=== PATIENT | male | born 1950 | race Hispanic/Latino ===

== ENCOUNTER 2024-12-27 09:48 | Observation (INO) | payer OTHER ==
[~2024-12-27] VITALS: Ht 172.7 cm; Wt 57.5 kg
--- NOTE | 2024-12-27 10:15 | ERN ---
ED Note History of Present Illness Stated Complaint: PRIAPISM Chief Complaint: Other Problems Time Seen by MD: 10:01 Dictation: 74-YEAR-OLD MALE COMING IN WITH COMPLAINTS OF A PROLONGED ERECTION THAT ONSET WAS 0 400 THIS MORNING. HE TOOK VIAGRA AT 10:00 LAST NIGHT. HE STATES NORMALLY HE TAKES 50 MG OF VIAGRA, LAST NIGHT HE TOOK 100 MG OF VIAGRA States past medical history is hyperlipidemia and hypertension, he takes losartan daily. He is also on testosterone replacement and recently started Flomax from his primary care doctor. Allergies: Coded Allergies: No Known Drug Allergies (Unverified Allergy, Unknown, 12/27/24) Past Medical History Past Medical History: No Pertinent History Surgical History: None RN Note Reviewed/Agreed w/PFSH: Yes Review of System Dictation CONSTITUTIONAL: NEGATIVE EXCEPT FOR HPI HEAD/FACE: NEGATIVE EXCEPT FOR HPI EENT: NEGATIVE EXCEPT FOR HPI RESPIRATORY: NEGATIVE EXCEPT FOR HPI GASTROINTESTINAL/ABDOMINAL: NEGATIVE EXCEPT FOR HPI GENITOURINARY: NEGATIVE EXCEPT FOR HPI PRIAPISM, ONSET 0 400 THIS MORNING MUSCULOSKELETAL: NEGATIVE EXCEPT FOR HPI INTEGUMENTARY: NEGATIVE EXCEPT FOR HPI NEUROLOGICAL/PSYCH: NEGATIVE EXCEPT FOR HPI HEMATOLOGIC/LYMPHATIC: NEGATIVE EXCEPT FOR HPI ALL SYSTEMS NEGATIVE, EXCEPT NOTED ABOVE. 13 POINT REVIEW OF SYSTEMS ASSESSED AND ALL NEGATIVE EXCEPT FOR ABOVE. Initial Vital Sign VS Vital Signs Date Time Temp Pulse Resp B/P (MAP) Pulse Ox O2 Delivery O2 Flow Rate FiO2 12/27/24 09:50 98.2 84 16 124/61 98 Room Air 12/27/24 10:35 0 21 Physical Exam Dictation VITAL SIGNS REVIEWED GENERAL APPEARANCE: ALERT, ORIENTED X 3, MODERATE ACUTE DISTRESS, WELL DEVELOPED, NOURISHED. HEAD AND FACE: NON-TRAUMATIC. EYES: PERRL, PINK CONJUNCTIVAS, EYELID NO TRAUMA, ANTERIOR CHAMBER WITH ARCUS SENILIS. EARS: PINNAS INTACT AND NO SIGNS OF TRAUMA OR ERYTHEMA EAR CANALS CLEAR AND NO DISCHARGE TM NO ERYTHEMA NOSE: NO DISCHARGE, NO BLEEDING. OROPHARYNX: MOUTH NORMAL, TONGUE PINK, PHARYNX CLEAR,NO ERYTHEMA, TONSILS NO EXUDATES, NO ABSCESSES NOTED, MUCOUS MEMBRANE MOIST NECK: SUPPLE, NON-TENDER, NO THYROMEGALY, NO MASSES, NO JVD, NO BRUITS BREAST:DEFERRED CHEST:NO TENDERNESS, NO CREPITUS, NO PARADOXICAL MOVEMENT, NO RETRACTIONS LUNGS:CLEAR, WELL-VENTILATED, SYMMETRIC, NO RALES, NO WHEEZING, NO RHONCHI, NO STRIDOR, GOOD BREATH SOUNDS BILATERALLY HEART: REGULAR RATE, REGULAR RHYTHM, NO MURMUR, NO GALLOPS VASCULAR: NO PERIPHERAL EDEMA, ABDOMEN: SOFT, POSITIVE BOWEL SOUNDS, NONDISTENDED, NO GUARDING, NONTENDER, NO REBOUND, NO MASSES NO HEPATOMEGALY, NO SPLENOMEGALY, NO DALY'S SIGN, NO HERNIAS. RECTAL: DEFERRED GENITAL: PRIAPISM NEUROLOGICAL: NORMAL SPEECH, MOTOR FUNCTION INTACT, SENSORY FUNCTION INTACT MUSCULOSKELETAL: NECK NONTENDER, FULL RANGE OF MOTION, BACK NONTENDER, FULL RANGE OF MOTION, EXTREMITIES: NONTENDER, FULL RANGE OF MOTION SKIN: COLOR PINK, DRY, NO TURGOR, NO RASH, NO LACERATIONS, NO ABRASIONS, NO CONTUSIONS. LYMPHATIC: DEFERRED Results (Laboratory/Radiology) Laboratory/Radiology Laboratory Tests Test 12/27/24 12:14 12/27/24 15:06 White Blood Count 5.6 K/uL (4.8-10.8) Red Blood Count 4.95 MIL/uL (4.50-6.20) Hemoglobin 14.6 g/dL (14.0-18.0) Hematocrit 42.4 % (42-54) Mean Corpuscular Volume 85.7 fL (79-99) Mean Corpuscular Hemoglobin 29.5 pg (27.0-33.0) Mean Corpuscular Hemoglobin Concent 34.4 g/dL (32.0-36.0) Red Cell Distribution Width 18.8 % (11.0-15.5) H Platelet Count 207 K/uL (130-400) Mean Platelet Volume 10.3 fL (7.5-10.5) Immature Granulocyte % (Auto) 0.2 % (0-1) Neutrophils (%) (Auto) 66.2 % (40.0-77.0) Lymphocytes (%) (Auto) 23.7 % (21.0-51.0) Monocytes (%) (Auto) 9.3 % (3.0-13.0) Eosinophils (%) (Auto) 0.2 % (0.0-8.0) Basophils (%) (Auto) 0.4 % (0.0-5.0) Neutrophils # (Auto) 3.7 K/uL (1.8-7.7) Lymphocytes # (Auto) 1.3 K/uL (1.0-4.8) Monocytes # (Auto) 0.5 K/uL (0.1-1.0) Eosinophils # (Auto) 0.01 K/uL (0.00-0.70) Basophils # (Auto) 0.02 K/uL (0.00-0.20) Absolute Immature Granulocyte (auto 0.01 K/uL (0-1) Nucleated Red Blood Cells 0.0 % (0.0-0.19) Red Blood Cell Morphology See comments Prothrombin Time 10.9 SEC (9.6-11.6) Prothromb Time International Ratio 1.03 (0.85-1.15) Activated Partial Thromboplast Time 24.5 SEC (26.3-35.5) L Sodium Level 142 mmol/L (136-145) Potassium Level 4.6 mmol/L (3.5-5.1) Chloride Level 106 mmol/L (101-111) Carbon Dioxide Level 29 mmol/L (21-32) Blood Urea Nitrogen 26 mg/dL (7-18) H Creatinine 1.0 mg/dL (0.5-1.3) Glomerular Filtration Rate Calc 78 mL/min (>90) Random Glucose 108 mg/dL (70-105) H Total Calcium 8.8 mg/dL (8.5-10.1) Blood Gas Specimen Type Venous Arterial Blood Oxygen Saturation 90.4 % (94.0-98.0) L Venous Blood pH 7.427 (7.320-7.430) Venous Blood pCO2 at Patient Temp 34 (38-54) L Venous Blood pO2 at Patient Temp 57.6 mmHg (23.0-48.0) H Venous Blood HCO3 22.1 (22.0-29.0) Venous Blood Base Excess -1.5 (-2.0-3.0) Venous Blood Total Hemoglobin 15.1 (13.5-17.5) Sodium (Blood Gas) 136 MMOL/L (136-145) Bedside Potassium (Blood Gas) 5.3 MMOL/L (3.4-4.5) H Bedside Chloride (Blood Gas) 105 MMOL/L (98-107) Bedside Glucose (Blood Gas) 85 MG/DL (65-95) Bedside Ionized Calcium (Blood Gas) 1.13 MMOL/L (1.15-1.33) L Bedside Lactic Acid (Blood Gas) 4.17 MMOL/L (0.36-0.75) *H Blood Gas Temperature 37.0 CELSIUS (35.5-37.0) Blood Gas Vent Mode RA (ROOM AIR) FiO2 21.0 % Blood Gas Specimen Comment VENOUS Labs Reviewed?: Yes ED Course ED Course Orders Procedure Category Date Status Time Apply Ice Pack To: CPOE 12/27/24 Transmitted (Er) 10:13 Acetaminophen With PHA 12/27/24 Complete Codeine (Tylenol-Code 10:30 Pharmacy PHA 12/27/24 Complete Communication 11:00 Pharmacy PHA 12/27/24 Complete Communication 10:49 Phenylephrine Hcl PHA 12/27/24 Complete (Phenylephrine Hcl) 11:30 Diazepam 5mg Tab PHA 12/27/24 Complete (Valium 5 Mg Tab) 12:00 Diazepam 5mg Tab PHA 12/27/24 Complete (Valium 5 Mg Tab) 11:52 Pt And Ptt LAB 12/27/24 Complete 12:00 Cbc With Differential LAB 12/27/24 Complete 12:00 Basic Metabolic Panel LAB 12/27/24 Complete 12:00 Saline Lock Iv CPOE 12/27/24 Transmitted 12:00 Nothing By Mouth DIET 12/27/24 Complete Lunch Pharmacy PHA 12/27/24 Complete Communication 13:07 Phenylephrine Hcl PHA 12/27/24 Complete (Phenylephrine Hcl) 13:30 Phenylephrine Hcl PHA 12/27/24 In Process (Phenylephrine Hcl) 13:30 Pharmacy PHA 12/27/24 Complete Communication 15:00 Phenylephrine Hcl PHA 12/27/24 In Process (Phenylephrine Hcl) 15:00 Venous Blood Gas RT 12/27/24 Transmitted 15:01 Venous Blood Gas Plus LAB 12/27/24 Complete 15:06 Heparin 5,000 Unit PHA 12/27/24 Complete Vial (Heparin 5,000 U 15:12 Ceftriaxone 1g Vial PHA 12/27/24 Complete (Rocephine 1g Inj) 15:15 Pharmacy PHA 12/27/24 Complete Communication 15:30 Heparin 5,000 Unit PHA 12/27/24 Complete Vial (Heparin 5,000 U 15:20 Bacitracin PHA 12/27/24 Complete (Bacitracin) 15:34 Bacitracin PHA 12/27/24 Complete (Bacitracin) 16:00 Ceftriaxone 1g Vial PHA 12/27/24 Complete (Rocephine 1g Inj) 16:00 Lactated Ringers PHA 12/27/24 In Process 1000ml (Lactated 16:00 Heparin 5,000 Unit PHA 12/27/24 Complete Vial (Heparin 5,000 U 16:00 Urology Consult CONPHYSVC 12/27/24 Transmitted 16:03 Vital Signs(Adult CPOE 12/27/24 Transmitted Hospitalist) 16:59 Nurse To Enter Home CPOE 12/27/24 Transmitted Medication 16:59 Admit Orders ADM 12/27/24 Transmitted 16:59 Telemetry Monitoring CPOE 12/27/24 Transmitted 16:59 Nothing By Mouth DIET 12/27/24 Transmitted Dinner Famotidine 20mg Vial PHA 12/27/24 In Process (Pepcid 20mg Vial) 21:00 0.9%Nacl 1000ml (Ns PHA 12/27/24 In Process 1000ml) 17:00 Acetaminophen 500mg PHA 12/27/24 In Process Tab (Tylenol 500mg T 17:00 Urology Consult CONPHYSVC 12/27/24 Transmitted 16:59 *Nursing CPOE 12/27/24 Transmitted Communication: 16:59 Ceftriaxone 1g Vial PHA 12/28/24 In Process (Rocephine 1g Inj) 09:00 Current Medications Medications (Trade) Dose Ordered Sig/[place] Route PRN Reason Start Time Stop Time Status Last Admin Dose Admin Acetaminophen/ Codeine Phosphate (TYLenol-coDEINE TAB) 2 tab ONCE ONCE PO 12/27/24 10:30 12/27/24 10:31 DC 12/27/24 10:21 Bacitracin (Bacitracin) 1 each STK-MED ONCE TP 12/27/24 15:34 12/27/24 15:34 DC Bacitracin (Bacitracin) 2 each ONCE ONCE TP 12/27/24 16:00 12/27/24 16:01 DC 12/27/24 16:06 Ceftriaxone Sodium 1 ml @ As Directed STK-MED ONCE .ROUTE 12/27/24 15:15 12/27/24 15:16 DC Ceftriaxone Sodium (ROCEphine 1G INJ) 1 gm ONCE ONCE IVPB 12/27/24 16:00 12/27/24 16:01 DC 12/27/24 16:07 Diazepam (VALium 5 mg TAB) 5 mg ONCE ONCE PO 12/27/24 12:00 12/27/24 12:01 DC 12/27/24 12:06 Diazepam (VALium 5 mg TAB) 5 mg STK-MED ONCE .ROUTE 12/27/24 11:52 12/27/24 11:53 DC Heparin Sodium (Porcine) (HEParin 5,000 UNIT VIAL) 5,000 unit STK-MED ONCE .ROUTE 12/27/24 15:12 12/27/24 15:13 DC Heparin Sodium (Porcine) (HEParin 5,000 UNIT VIAL) 5,000 unit STK-MED ONCE .ROUTE 12/27/24 15:20 12/27/24 15:21 DC Heparin Sodium (Porcine) (HEParin 5,000 UNIT VIAL) 10,000 unit ONCE ONCE SQ 12/27/24 16:00 12/27/24 16:01 DC 12/27/24 16:05 Lactated Ringer's 1,000 ml @ 0 mls/hr Q0M IV 12/27/24 16:00 01/26/25 15:59 12/27/24 16:05 Pharmacy Profile Note (Pharmacy Communication) 1 each ONCE MISC 12/27/24 11:00 12/27/24 11:27 DC Pharmacy Profile Note (Pharmacy Communication) 1 each ONCE MISC 12/27/24 15:00 12/27/24 15:12 DC Pharmacy Profile Note (Pharmacy Communication) 1 each ONCE MISC 12/27/24 15:30 12/27/24 15:36 DC Pharmacy Profile Note (Pharmacy Communication) 1 each ONCE STAT MISC 12/27/24 10:49 12/27/24 11:27 DC Pharmacy Profile Note (Pharmacy Communication) 1 each ONCE STAT MISC 12/27/24 13:07 12/27/24 13:17 DC Phenylephrine HCl (phenylEPHRINE HCL) 0.1 mg ONCE IV 12/27/24 11:30 12/27/24 12:00 DC 12/27/24 11:36 Phenylephrine HCl (phenylEPHRINE HCL) 0.1 mg ONCE IV 12/27/24 13:30 12/27/24 13:16 DC Phenylephrine HCl (phenylEPHRINE HCL) 0.1 mg ONCE IV 12/27/24 13:30 12/28/24 13:31 12/27/24 14:19 Phenylephrine HCl (phenylEPHRINE HCL) 0.1 mg ONCE IV 12/27/24 15:00 12/30/24 15:01 12/27/24 16:04 Vital Signs Date Time Temp Pulse Resp B/P (MAP) Pulse Ox O2 Delivery O2 Flow Rate FiO2 10/25/25 16:04 132/60 12/27/24 16:00 97.9 49 18 148/59 98 Room Air* 0 21 12/27/24 15:00 98.2 65 18 128/69 99 Room Air* 0 21 12/27/24 14:19 135/73 12/27/24 14:18 135/73 12/27/24 11:36 143/72 12/27/24 10:35 98.2 84 16 124/61 98 Room Air* 0 21 12/27/24 09:50 98.2 84 16 124/61 98 Room Air 1100/PATIENT REEXAMINED AND THERE WAS NO HEMATOMA AT THE INJECTION SITES. PRIAPISM CONTINUES, PATIENT DOES STATE HE FEELS BETTER. 1057, ER MD PAGED /UROLOGISTS. 1126/SECOND PAGED TO , NO ANSWER FROM 1ST PAGE 1151/3RD PAGE TO DR BRADFORD, NO ANSWER FROM 1ST TWO PAGES. 1150/PATIENT REMAINS ERECT AT THIS TIME. No pain at this time 1158/spoke with the ER MD and we are not getting a returned call from urologists. He agrees with me that we will initiate a transfer to a higher level of care For urologic care, Cody ARAUJOantique clocks repairer nurse was notified and left a message with scanning supervisor voicemail to return call immediately 1210/VAN Jimenez scanning supervisor here and transfer has been initiated 1225/PATIENT CONTINUES TO HAVE PRIAPISM. ERECTION NOT SUBSIDED. ICE PACK WAS REMOVED AND WE WILL CONTINUE TO MONITOR. PENDING TRANSFER TO HIGHER LEVEL OF CARE. NO HEMATOMA AT THIS TIME 1304/ RETURN PHONE CALL AND SPOKE TO ER MD. HE RECOMMENDED WE CONTINUED TO IRRIGATE WITH NORMAL SALINE UP TO 100 CC BILATERALLY. ONCE COMPLETED HE SAID TO ADMINISTER ANOTHER PHENYLEPHRINE 100 MCQ BILATERALLY 1430/ HERE AND SPOKE WITH ER MD AND PATIENT. 1550/ LEFT BEDSIDE AFTER HIS INTERVENTIONS WITH PATIENT. WANTS PATIENT TO BE MONITORED FOR 2 HOURS.1720/DMITTED TO DR DALLAS, Medical Decision Making MDM MDM: Differential diagnosis: Priapism/drug-induced/electrolyte imbalance/dehydration Rationale: Tests considered and ordered secondary to shared decision making include: labs, Previous outside records reviewed: Old ER visits. Risk of complication and/or morbidity or mortality of patient management: None Medications-Per medication reconciliation Need for hospitalization: Patient does meet criteria for hospitalization. P PATIENT ADMITTED FOR23 HOUR OBSERVATION DUE TO POTENTIAL FOR RECURRENT Need for emergency major/minor surgery: No There are no social concerns with this patient. Patient takes Viagra, last dose was 22:00 hours yesterday 100 mg. Prescription drug management Prescriptions will include symptomatic care Patient's prior external medical records from other ER visits were reviewed by me as indicated. Prior testing and results from previous visits were reviewed. Prior tests were taken into account with medical decision making and resource utilization, independent historian/historians were used to obtain complete medical history. I independently interpreted the test that were performed, results were reviewed by me and considered findings on radiology if ordered. Medical management and examination interpretation discussions were had by me with other qualified healthcare professionals as indicated for the patient's care. Procedure Procedure Dictation: 1040/PROCEDURE EXPLAINED TO PATIENT HE AGREED TO PROCEED DR WOODS AT BEDSIDE BASE OF PENIS WAS PREPPED ASEPTICALLY WITH BETADINE SWABS BILATERALLY. 18 GAUGE NEEDLE WAS INTRODUCED INTO THE CAVERNOSA BILATERALLY WITH 10 ML SYRINGES. ASPIRATED APPROXIMATELY4 ML EACH SIDE. CIRCUMFERENTIAL PRESSURE WAS HELD TO MINIMIZE HEMATOMA. PATIENT STATES PAIN RELIEF. PRIAPISM REMAINS WE WILL FOLLOW UP WITH PHENYLEPHRINE. 1122/PROCEDURE EXPLAINED TO PATIENT HE AGREED TO PROCEED PREPPED EACH SIDE OF PENIS AT 22:00 AND 1400 ASEPTICALLY WITH BETADINE USED 1.5 ML 1% LIDOCAINE PLAIN FOR SUBCU ANESTHESIA IRRIGATED EACH CAVERNOSA WITH15 ML OF STERILE WATER AND ASPIRATED OUT. Irrigation was stopped once blood was bright red clots or darkness INJECTED BILATERALLY WITH PHENYLEPHRINE 50 MCQ 1400/EXPLAINED TO PATIENT HE AGREED TO PROCEED. ER MD AND NURSE PRACTITIONER PREPPED PENIS BILATERALLY STERILELY WITH BETADINE SWABS 1.5 ML LIDOCAINE 1% PLAIN USED FOR LOCAL ANESTHESIA IRRIGATED CAR POST A BILATERALLY WITH 10 ML STERILE WATER NO CLOTS AT THIS TIME 100 mcq phenylphrine injected at 02:00 and 10 o'clock position Penis is more flaccid now Patient tolerated well Direct pressure held over injection sites for 7-10 minutes No hematoma at this time. PATIENT TOLERATED WELL, PENIS IS MUCH LESS DIRECTED AT THIS TIME. 1128/PENIS CONTINUES TO BE SEMI DIRECTED. PATIENT STATES HE HAS NO PAIN INJECTED PHENYLEPHRINE 50 MCG BILATERALLY. TOLERATED WELL DIRECT PRESSURE HELD FOR 5-7 MINUTES TO ASSURE NO HEMATOMA. PATIENT TOLERATED WELL DX & DISP Disposition: Inpatient Decision to Admit Time: 16:06 Departure Impression: Primary Impression: Drug-induced priapism Condition: Stable Referrals: SELF,REFERRAL (PCP) Time of Disposition: 12:04 I have reviewed the case, and I agree with, Diagnosis and Plan JYOTHI PADILLA [employer] SECRECY ACT OFFICER Dec 27, 2024 10:15
[2024-12-27] MEDS ORDERED: PHARMACY COMMUNICATION MISC STA ×2 (10:49→13:07)
[2024-12-27] MEDS ORDERED: PHARMACY COMMUNICATION MISC SCH ×3 (11:00→15:30)
[2024-12-27] MEDS: diazePAM 5 MG TAB PO ONE (12:06)
[2024-12-27] MEDS: diazePAM 5 MG TAB ONE (12:06)
[2024-12-27 12:18] LABS: IMMATURE GRANULOCYTE ABSOLUTE 0.01 K/uL (0-1); NUCLEATED RED BLOOD CELLS 0.0 % (0.0-0.19); PLATELET COUNT (AUTO) 207 K/uL (130-400); RED BLOOD CELL COUNT(AUTO) 4.95 MIL/uL (4.50-6.20); RED CELL DISTRIBUTION WIDTH 18.8 % (11.0-15.5); WHITE BLOOD COUNT (AUTO) 5.6 K/uL (4.8-10.8)
[2024-12-27 12:28] LABS: INR 1.03 (0.85-1.15)
[2024-12-27 12:34] LABS: CREATININE 1.0 mg/dL (0.5-1.3); GLOMERULAR FILTR. RATE CALC 78.0 mL/min (>90); GLUCOSE,RANDOM 108.0 mg/dL (70-105); SODIUM SERUM 142.0 mmol/L (136-145); UREA NITROGEN, BLOOD 26.0 mg/dL (7-18)
--- NOTE | 2024-12-27 15:00 | NUR ---
DR. BRADFORD WAS AT BEDSIDE, PT WAS EVALUATED BY UROLOGIST. H&P, LABS AND INTERVENTIONTS SO FAR WERE EVALUATED BY DR. BRADFORD AT PT BEDSIDE.
[2024-12-27 15:08] LABS: ABG OXYGEN SATURATION 90.4 % (94.0-98.0); BASE EXCESS,VENOUS BLOOD GAS -1.5 (-2.0-3.0); DEVICE COMMENT VENOUS; HCO3,VENOUS BLOOD GAS 22.1 (22.0-29.0); PCO2,VENOUS BLOOD GAS 34 (38-54); PH,VENOUS BLOOD GAS 7.427 (7.320-7.430); PO2,VENOUS BLOOD GAS 57.6 mmHg (23.0-48.0); TEMPERATURE, CELSIUS BG 37.0 CELSIUS (35.5-37.0); VENT MODE, BG RA (ROOM AIR)
[2024-12-27] MEDS: LACTATED RINGERS 1000ML 1,000 ML IV SCH (16:05)
[2024-12-27] MEDS: cefTRIAXone 1G VIAL 1 GM ONE (16:06)
[2024-12-27] MEDS: BACITRACIN 1 EACH PACKET TP ONE ×2 (16:06→16:07)
--- NOTE | 2024-12-27 16:30 | NUR ---
PRIAPISM NOTE #2: BALDEMAR ARAUJO WAS ASSISTING THE ED MD/OPERATIONAL TRAINER WELL DR MARTINEZ DURING THE ENTIRE TREATMENT OF THE PTS PRIAPISM.
--- NOTE | 2024-12-27 16:30 | NUR ---
PRIAPISM AND UROLOGY CONSULT NOTE: AFTER INITIALLY ATTEMPTING TO CALL DR BRADFORD FOR A UROLOGICAL CONSULT FOR AN EXTENDED PRIAPISM, WE HAD TO NOTIFY HOUSE ABOUT A POSSIBLE PENDING TRANSFER TO ANOTHER FACILITY. WHILE THAT DECISION WAS BEING FINALIZED, DR WOODS/JYOTHI MARQUEZ MADE SEVERAL ATTEMPTS TO RELIEVE THE PT OF HIS PRIAPISM W/USE OF ICE PACKS, THEN USED ASPIRATION TECHNIQUE MULTIPLE TIMES W/INJECTIONS OF PHENYLEPHRINE SHOTS THAT WERE PREPARED BY PHARMACY. ABOUT 1500HRS, DR MARTINEZ ARRIVED, EVALUATED THE PT/SITUATION, REVIEWED THE CHART AND ALSO USED WHATEVER TECHNIQUE HE USED TO ASSIST IN THE REDUCTION OF THE PTS PRIAPISM. PLEASE REFER TO HIS MD NOTE WELL THE ED MD/NITROGLYCERIN SEPARATOR OPERATOR NOTE. AT THIS TIME, PTS PENIS IS ONCE AGAIN FLACCID. NO HEMATOMA NOTED AT THIS TIME. ICE PACK CONTINUES TO BE APPLIED TO THE PTS PENIS.
--- NOTE | 2024-12-27 16:43 | CONS ---
DATE OF CONSULTATION: In the Emergency Room, 12/27/2024 at 2:00 p.m. REQUESTING PHYSICIAN: Dr. Tran. REASON FOR CONSULTATION: That of priapism. HISTORY OF PRESENT ILLNESS: A 74-year-old male with prolonged erection since last night. He apparently fell asleep around 10 o'clock last night and then woke up this morning with an erection. He apparently took 100 mg of Viagra. The patient also takes testosterone supplementation and Flomax. His serum testosterone level he states runs around 1,000 or more. He has no voiding difficulties. Apparently, he has had 3 episodes of priapism in the past, treated with aspiration in the emergency rooms in [place]. The etiology of priapism appears to be related to phosphodiesterase usage only. The patient has no risk factors known of sickle cell disease or other hematologic condition. ALLERGIES: None. MEDICATIONS: Include Losartan, Flomax, testosterone replacement therapy. PAST SURGICAL HISTORY: Negative. FAMILY HISTORY: Negative for kidney stones. SOCIAL HISTORY: He is a retired elementary school art teacher, . Does not smoke or drink. REVIEW OF SYSTEMS: He has no symptoms of chest pain. His appetite is good. No nausea, vomiting, constipation, or diarrhea. No headaches, dizziness, or nosebleeds. No joint pain, joint swelling, limitation of movement, night sweats, fevers, chills, or skin rash. PHYSICAL EXAMINATION: GENERAL: The patient on physical examination is encountered lying in a rney room #11. VITAL SIGNS: His blood pressure is 130/80 with a pulse of 84. Temperature is 98. NECK: Without adenopathy or supraclavicular masses palpable. LUNGS: Mckeon are clear to auscultation. HEART: Sounds are best heard in the fifth intercostal space on the left side. ABDOMEN: Full, soft and nontender. BACK: Has no CVA tenderness. EXTERNAL GENITALIA: Phallus is circumcised. He has an erection, which is very rigid and painful. There have been some attempts to aspirate without complete success with reoccurrence of erection following aspiration apparently. Testicles were seen bilaterally. Nontender. No masses. LABORATORY DATA: The patient's laboratory data reviewed in detail. He has a white count of 5.6, hematocrit of 42, platelet count of 207. The patient's sodium 142, potassium 4.6, and his BUN and creatinine are 26 and 1.0. Urinalysis is pending. In the Emergency Room, the patient was given diazepam as well as Tylenol with codeine. IMAGING STUDIES: Currently none. ASSESSMENT: Priapism with failed detumescence so far in the Emergency Room. RECOMMENDATIONS: To the patient are to proceed with needle aspiration as well as indicated procedures for penile detumescence of his erection. The risks, benefits, alternatives, and potential complications of this procedure at bedside carefully reviewed with the patient and his , who was also at the bedside. Accordingly, also I did request appropriate fully informed consent and the patient then had an aspiration procedure done at the bedside to be followed if needed by surgical intervention if he fails medical therapy at the bedside. Concerns and questions were answered and the patient's procedure appears in the procedure note below. TID: [id number] RECEIPT: [id number]
--- NOTE | 2024-12-27 16:43 | OP ---
DATE OF PROCEDURE: 12/27/2024 DESCRIPTION OF PROCEDURE: The patient's genitalia were thoroughly prepped and draped in usual fashion with Betadine. The patient's penis has already been anesthetized with 1% lidocaine at the time of my arrival and the patient then had a 16-gauge butterfly needle inserted in the right base of the penis with aspiration of a total of about 60 mL of dark blood. Identical procedure was performed on the contralateral left side. ABG at the time of my arrival was now at 7.4 with a pCO2 of about 50 and a pO2 also of about 45 consistent with ischemic priapism. Continued aspiration and irrigation was then performed aseptically. The patient did have phenylephrine 200 mcg per mL instilled into both corpora, a total of 5 times on the left and 3 times on the right. Ultimately, detumescence of the penis was achieved completely. The patient had a Coban type dressing placed gently on the penis with ice packs. He will be monitored for a total of 2 hours in the Emergency Room to assure that he does not have a recurrence of his priapism before discharge. Otherwise, consideration for admission to the hospital with monitoring for the next 23 hours will be recommended to the patient. He is to be kept n.p.o. for now and hopefully, the patient will not require surgical intervention later this evening. Concerns and questions were answered. He did receive 1 g of Rocephin IV piggyback in the Emergency Room at the time of my procedure and tolerated the procedure well with no complications. As part of the patient's informed consent and explanations, I have explained to the patient and his the risk of worsening erectile dysfunction and possible complete erectile dysfunction should we have to proceed with any surgical intervention for his erections going forward. The patient is agreeable with this and did provide a fully informed consent if needed. TID: [id number] RECEIPT:
--- NOTE | 2024-12-27 17:02 | HP ---
[facility] HISTORY [facility] PHYSICAL Date of Service: Dec 27, 2024 Time of Service: 17:02 HISTORY OF PRESENT ILLNESS: 74-year-old male with past medical history of hypertension, hyperlipidemia presented to the hospital secondary to prolonged erection. The patient states he took 100 mg of Viagra yesterday at night. Afterwards he had prolonged erection which started around 4:00 a.m. in the morning. The erection did not subside. Denied any chest pain, shortness of breath, abdominal pain, nausea, vomiting, dysuria, falls, syncopal episode. While in the ER patient had multiple doses of IV phenylephrine. Urology was consulted and patient was evaluated by Dr. Hernandez underwent penile aspiration and had subsequent penile detumescence Patient was seen postprocedure and states his erection has improved. He currently has dressing in his in his penis. He is able to urinate. I was was requested to admit this patient by urology and ER. Labs were notable for white count of 5.6, hemoglobin was 14.6, platelet count was 207 K, sodium was 142, potassium was 4.6, creatinine was 1.0 REVIEW OF SYSTEMS CONSTITUTIONAL: Denies fevers, chills, or night sweats. No unintentional weight loss reported. NEUROLOGICAL: Denies headache, amaurosis fugax, motor weakness, sensory deficit, vertigo/spinning sensation, gait abnormalities, or tremors. ENT: No hearing loss, otalgia, otorrhea, rhinitis, rhinorrhea, hoarseness, or sore throat. CARDIOVASCULAR: Denies any exertional angina, dyspnea on exertion, orthopnea, paroxysmal nocturnal dyspnea, palpitations, life-threatening arrhythmias, claudication. PULMONARY: Denies any shortness of breath, cough, phlegm/sputum, hemoptysis, pleuritic chest pain. SLEEP: Denies morning headaches, daytime somnolence or napping. Denies difficulty falling asleep, staying asleep, waking from sleep. Denies knowledge of snoring. GASTROINTESTINAL: Denies any type of dysphagia to either liquids or solids. Denies nausea, vomiting, pyrosis, early satiety, abdominal pain, diarrhea, constipation, or changes in stool consistency or caliber. Denies coffee-ground emesis, hematemesis, hematochezia, or melanotic stools. GENITOURINARY: Denies frequency, urgency, nocturia, hematuria or incontinence (Storage/Irritative symptoms.) Low urinary stream, straining to void, urinary intermittency or hesitancy, splitting of the voiding stream, terminal dribbling. Positive for prolonged erection ENDOCRINOLOGIC: Denies polyuria, polydipsia, polyphagia or heat/cold intolerances. HEMATOLOGIC: Denies thrombophilia/previous clots, or coagulopathy/bleeding disorders. ONCOLOGIC: Denies personal history of malignancy. DERMATOLOGIC: Denies rashes or pruritus. PSYCHIATRIC: Denies any suicidal or homicidal ideation. Denies hallucinations. PAST MEDICAL HISTORY: BPH, hypertension, hyperlipidemia PAST SURGICAL HISTORY: Denied any previous surgical history PAST SOCIAL HISTORY: Denied any smoking, alcohol, drug use. Patient is a body former FAMILY HISTORY: Denied any pertinent family history Coded Allergies: No Known Drug Allergies (Unverified Allergy, Unknown, 12/27/24) PHYSICAL EXAM GENERAL APPEARANCE: The patient is awake, alert, and oriented, in no acute cardiopulmonary distress. NEUROLOGICAL: Cranial nerves II-XII grossly intact. Motor is 5/5 in bilateral upper and lower extremities proximal to distal. No sensory deficits. HEENT: Face is symmetric. Pupils are equal and reactive. Extraocular movements are intact. NECK: Supple. No JVD. No thyromegaly. No submental, submandibular, pre- /postauricular, occipital or supraclavicular lymphadenopathy. CHEST: Normal chest expansion. No Telemetry. LUNGS: Absence of any rales, rhonchi or any wheezing. CARDIOVASCULAR: Regular. S1 and S2 normal. No appreciable rubs, murmurs or gallops. ABDOMEN: Soft, nontender, and nondistended. There is no rebound, voluntary guarding, or rigidity. : Penis appears flaccid. He currently has a dressing in place. He has ice pack present on his groin EXTREMITIES: Non-edematous and not cyanotic. No clubbing. Good capillary refill. SKIN: No skin breakdown. Vital Sign (Last 24 Hours) 12/27/24 12/27/24 16:00 16:04 Temp 97.9 Pulse 49 Resp 18 B/P (MAP) 132/60 Pulse Ox 98 O2 Delivery Room Air* O2 Flow Rate 0 FiO2 21 LABS: Laboratory: Test 12/27/24 15:06 12/27/24 12:14 Range/Units Blood Gas Specimen Type Venous Arterial Blood Oxygen Saturation 90.4 L 94.0-98.0 % Venous Blood pH 7.427 7.320-7.430 Venous Blood pCO2 at Patient Temp 34 L 38-54 Venous Blood pO2 at Patient Temp 57.6 H 23.0-48.0 mmHg Venous Blood HCO3 22.1 22.0-29.0 Venous Blood Base Excess -1.5 -2.0-3.0 Venous Blood Total Hemoglobin 15.1 13.5-17.5 Sodium (Blood Gas) 136 136-145 MMOL/L Bedside Potassium (Blood Gas) 5.3 H 3.4-4.5 MMOL/L Bedside Chloride (Blood Gas) 105 98-107 MMOL/L Bedside Glucose (Blood Gas) 85 65-95 MG/DL Bedside Ionized Calcium (Blood Gas) 1.13 L 1.15-1.33 MMOL/L Bedside Lactic Acid (Blood Gas) 4.17 *H 0.36-0.75 MMOL/L Blood Gas Temperature 37.0 35.5-37.0 CELSIUS Blood Gas Vent Mode RA ROOM AIR FiO2 21.0 % Blood Gas Specimen Comment VENOUS White Blood Count 5.6 4.8-10.8 K/uL Red Blood Count 4.95 4.50-6.20 MIL/uL Hemoglobin 14.6 14.0-18.0 g/dL Hematocrit 42.4 42-54 % Mean Corpuscular Volume 85.7 79-99 fL Mean Corpuscular Hemoglobin 29.5 27.0-33.0 pg Mean Corpuscular Hemoglobin Concent 34.4 32.0-36.0 g/dL Red Cell Distribution Width 18.8 H 11.0-15.5 % Platelet Count 207 130-400 K/uL Mean Platelet Volume 10.3 7.5-10.5 fL Immature Granulocyte % (Auto) 0.2 0-1 % Neutrophils (%) (Auto) 66.2 40.0-77.0 % Lymphocytes (%) (Auto) 23.7 21.0-51.0 % Monocytes (%) (Auto) 9.3 3.0-13.0 % Eosinophils (%) (Auto) 0.2 0.0-8.0 % Basophils (%) (Auto) 0.4 0.0-5.0 % Neutrophils # (Auto) 3.7 1.8-7.7 K/uL Lymphocytes # (Auto) 1.3 1.0-4.8 K/uL Monocytes # (Auto) 0.5 0.1-1.0 K/uL Eosinophils # (Auto) 0.01 0.00-0.70 K/uL Basophils # (Auto) 0.02 0.00-0.20 K/uL Absolute Immature Granulocyte (auto 0.01 0-1 K/uL Nucleated Red Blood Cells 0.0 0.0-0.19 % Red Blood Cell Morphology See comments Prothrombin Time 10.9 9.6-11.6 SEC Prothromb Time International Ratio 1.03 0.85-1.15 Activated Partial Thromboplast Time 24.5 L 26.3-35.5 SEC Sodium Level 142 136-145 mmol/L Potassium Level 4.6 3.5-5.1 mmol/L Chloride Level 106 101-111 mmol/L Carbon Dioxide Level 29 21-32 mmol/L Blood Urea Nitrogen 26 H 7-18 mg/dL Creatinine 1.0 0.5-1.3 mg/dL Glomerular Filtration Rate Calc 78 >90 mL/min Random Glucose 108 H 70-105 mg/dL Total Calcium 8.8 8.5-10.1 mg/dL Current Medications Medications (Trade) Dose Ordered Sig/[place] Route PRN Reason Start Time Stop Time Status Last Admin Dose Admin Lactated Ringer's 1,000 ml @ 0 mls/hr Q0M IV 12/27/24 16:00 01/26/25 15:59 12/27/24 16:05 999 MLS/HR Pharmacy Profile Note (Pharmacy Communication) 1 each ONCE MISC 12/27/24 11:00 12/27/24 11:27 DC Pharmacy Profile Note (Pharmacy Communication) 1 each ONCE MISC 12/27/24 15:00 12/27/24 15:12 DC Pharmacy Profile Note (Pharmacy Communication) 1 each ONCE MISC 12/27/24 15:30 12/27/24 15:36 DC Pharmacy Profile Note (Pharmacy Communication) 1 each ONCE STAT MISC 12/27/24 10:49 12/27/24 11:27 DC Pharmacy Profile Note (Pharmacy Communication) 1 each ONCE STAT MISC 12/27/24 13:07 12/27/24 13:17 DC Phenylephrine HCl (phenylEPHRINE HCL) 0.1 mg ONCE IV 12/27/24 11:30 12/27/24 12:00 DC 12/27/24 11:36 0.1 MG Phenylephrine HCl (phenylEPHRINE HCL) 0.1 mg ONCE IV 12/27/24 13:30 12/27/24 13:16 DC Phenylephrine HCl (phenylEPHRINE HCL) 0.1 mg ONCE IV 12/27/24 13:30 12/28/24 13:31 12/27/24 14:19 0.1 MG Phenylephrine HCl (phenylEPHRINE HCL) 0.1 mg ONCE IV 12/27/24 15:00 12/30/24 15:01 12/27/24 16:04 0.1 MG DIAGNOSTICS / RADIOLOGY: [ ] ASSESSMENT: Priapism secondary to medication s/p multiple injections and subsequent aspiration Hypertension Hyperlipidemia PLAN: - patient to be admitted to medical-surgical unit -in reference to preop exam. Patient will be observed in the hospital. We will start patient on NS for gentle hydration and continue patient on Rocephin for 24 hours. We will follow urology recommendations. Appreciate Urology recommendations. If patient remains stable we will be started on a diet. -obtain home medications she will be reconciled once available. The patient will need to hold his Viagra on discharge. Advanced Care Planning Which of the following were discussed: Hospice care: Yes __ No _x_ Therapeutic options: Yes __ No __ Advance directives: Yes __ No __ Other discussions: Discussed with who?: patient (Patient, family or surrogates) Voluntary nature of this service was explained to the patient? Yes _x_ No __ Amount of time spent: 25 minutes TRISTIN Berg MD, MD Dec 27, 2024 17:02
--- NOTE | 2024-12-27 17:14 | NUR ---
NEW ICE PACK APPLIED TO PENIS AREA.
[2024-12-27] MEDS: 0.9%NACL 1000ML 1,000 ML IV SCH (18:20)
[2024-12-27] MEDS: FAMOTIDINE 20MG VIAL IV SCH (21:34)
[2024-12-27 22:50] VITALS: BP 141/71; PULSE 47; RESP 20; TEMP 97.7
[2024-12-27] MEDS ORDERED: COLC0.6C3 PO (23:17)
[2024-12-27] MEDS ORDERED: ATOR40TA71 PO (23:17)
[2024-12-27] MEDS ORDERED: LOSA25TA41 PO (23:17)
[2024-12-27 23:31] VITALS: O2SAT 97
[2024-12-28] VITALS: BP 134/76; PULSE 46; RESP 20; TEMP 97.6
[2024-12-28 04:00] VITALS: BP 135/78; PULSE 58; RESP 20; TEMP 97.6
[2024-12-28 07:47] LABS: IMMATURE GRANULOCYTE ABSOLUTE 0.01 K/uL (0-1); NUCLEATED RED BLOOD CELLS 0.0 % (0.0-0.19); PLATELET COUNT (AUTO) 198 K/uL (130-400); RED BLOOD CELL COUNT(AUTO) 4.60 MIL/uL (4.50-6.20); RED CELL DISTRIBUTION WIDTH 19.0 % (11.0-15.5); WHITE BLOOD COUNT (AUTO) 5.1 K/uL (4.8-10.8)
[2024-12-28 07:54] LABS: CREATININE 1.0 mg/dL (0.5-1.3); GLOMERULAR FILTR. RATE CALC 78.0 mL/min (>90); GLUCOSE,RANDOM 115.0 mg/dL (70-105); SODIUM SERUM 142.0 mmol/L (136-145); UREA NITROGEN, BLOOD 15.0 mg/dL (7-18)
--- NOTE | 2024-12-28 07:57 | NUR ---
HEARD SCREAM FROM ROOM AND PER PATIENT SPILLED COFFEE ON HIMSELF. MONICA CLEANSED AND APPLIED COOL COMPRESSES TO SITE. MILD REDNESS TO SKIN NOTED. DR BARRIENTOS INFORMED
[2024-12-28 08:00] VITALS: BP 129/76; PULSE 57; RESP 16; TEMP 97.9
[2024-12-28 08:31] VITALS: O2SAT 98
[2024-12-28 12:00] VITALS: BP 139/76; PULSE 55; RESP 16; TEMP 97.2
--- NOTE | 2024-12-28 13:25 | NUR ---
cm note met with pt and states resides at home with spouse, independent with adls/ambulation. no dme no home services. dc plan is back home states no dc needs. Addendum: 12/28/24 at 1326 by ARUN JOSHI CM Amended: Links added.
--- NOTE | 2024-12-28 14:23 | NUR ---
1405 CALLED IN RX FOR AUGMENTIN 500MG PO BID X 7 DAYS TO [facility] IN [place]; SPOKE TO VALERIE 1420 D/C INSTRUCTIONS GIVEN TO PATIENT AND TO F/U IN [address] BRADFORD[address] BARRIENTOS AWARE OF D/C. IV REMOVED
[2024-12-28] MEDS ORDERED: SILVER SULFADIAZINE CREAM 50 GM TP SCH (21:00)
--- NOTE | 2024-12-29 22:52 | OP ---
DATE OF PROCEDURE: 12/28/2024 ADDENDUM: The patient was seen in consultation at Emergency Room for evaluation and management. Total time spent for evaluation, management, multiple penile aspirations, multiple administrations of phenylephrine intracorporeally with hemodynamic monitoring, 2 hours 30 minutes. TID: [id number] RECEIPT: [id number]
== END 2024-12-28 14:30 | disposition home or self-care (01) ==
LOC: EDH 09:48 → UNDOADMOB 16:59 → INTOOBSV 16:59 → EDHIP 16:59 → 3CH 22:35 → EDHIP 12-28 08:00
PROVIDERS: ADMIT Internal Medicine; ATTEND Internal Medicine
DX: N48.33 Priapism, drug-induced (principal); R42 Dizziness and giddiness; I10 Essential (primary) hypertension; N40.0 Benign prostatic hyperplasia without lower urinary tract symptoms; E78.5 Hyperlipidemia, unspecified; R79.1 Abnormal coagulation profile; Z79.899 Other long term (current) drug therapy; Z98.890 Other specified postprocedural states
CPT/HCPCS: 96376 ×2; 96372; 54220; 96365; 96375; 99285; 82435; 82947; 84132; 84295; 80048 ×2; 82803; 85025 ×2; 85610; 85730; 83605; 36415 ×2; 36600; 96366; 82948; J1308 ×2; J0696 ×2; J1644 ×2; J2371 ×2; G0378 ×6; 96374